=== PATIENT | female | born 1970 | race Hispanic/Latino ===

== ENCOUNTER 2019-12-25 10:30 | Day surgery (SDC) | payer OTHER ==
[~2019-12-25] VITALS: Ht 160 cm; Wt 98.4 kg
[2019-12-25] VITALS (8 sets, daily range): BP systolic 110–152; BP diastolic 63–82
[2019-12-25] MEDS ORDERED: ASPI-1443 PO (11:38)
[2019-12-25] MEDS ORDERED: METF-444 PO (11:38)
[2019-12-25] MEDS ORDERED: ICOS1CAP PO (11:38)
[2019-12-25] MEDS ORDERED: SODIUM CHLORIDE 0.9% 1000ML 1,000 ML IV ONE (11:44)
[2019-12-25] MEDS ORDERED: PROPOFOL 10 MG/ML 20ML VIAL IV ONE ×2 (12:37→12:52)
[2019-12-25] MEDS ORDERED: GLYCOPYRROLATE 0.2 MG/ML 5 ML VIAL ONE (12:37)
[2019-12-25] MEDS ORDERED: LIDOCAINE HCL 2% 20ML ONE (12:37)
== END 2019-12-25 13:45 | disposition home or self-care (01) ==
LOC: DAH 10:30 → ENDO 10:30
PROVIDERS: ATTEND Internal Medicine Gastroenterology
DX: K92.1 Melena (principal); K57.30 Diverticulosis of large intestine without perforation or abscess without bleeding; K62.1 Rectal polyp; K63.5 Polyp of colon; K29.50 Unspecified chronic gastritis without bleeding; K31.89 Other diseases of stomach and duodenum; K64.0 First degree hemorrhoids; K21.00 Gastro-esophageal reflux disease with esophagitis, without bleeding; I10 Essential (primary) hypertension; E11.9 Type 2 diabetes mellitus without complications; E66.01 Morbid (severe) obesity due to excess calories; Z90.49 Acquired absence of other specified parts of digestive tract; Z98.890 Other specified postprocedural states; Z80.0 Family history of malignant neoplasm of digestive organs; Z79.84 Long term (current) use of oral hypoglycemic drugs; Z79.82 Long term (current) use of aspirin; E78.5 Hyperlipidemia, unspecified; Z83.3 Family history of diabetes mellitus; Z83.438 Family history of other disorder of lipoprotein metabolism and other lipidemia; Z82.49 Family history of ischemic heart disease and other diseases of the circulatory system; Z87.19 Personal history of other diseases of the digestive system; Z68.39 Body mass index [BMI] 39.0-39.9, adult
CPT/HCPCS: 43239; 45380; A4215; A4221; A4222; A4223; A4606; A4620; A4657; A4663; J2704 ×2; J3490 ×2; J7030